=== PATIENT | female | born 1950 | race Caucasian/White ===

== ENCOUNTER → 2016-08-02 | Outpatient (CLI) | payer BC ==
[~2016-08-02] MED LIST: ATOR-24 PO; BUDESUS; CYAN100020 PO; ERGO1CAP35 PO; FRCT/ PO; GLC500 PO; GLIM2TAB2 PO; LEVO175T PO; LISI-787 PO; RALO60TA12 PO; ZOLP10TA PO
[2016-08-02 13:02] LABS: ESTIMATED AVERAGE GLUCOSE 200 mg/dl; HA1C FLAG Normal (Normal)
[2016-08-02 13:17] LABS: ALT/SGPT 24 U/L (12-78); AST/SGOT 13 U/L (15-37); BLOOD UREA NITROGEN 17 mg/dl (7-18); BUN/CREATININE RATIO 19.6 (10-20); CALCIUM 9.6 mg/dl (8.5-10.1); CARBON DIOXIDE 29 mmol/L (21-32); CHLORIDE 107 mmol/L (98-107); CREATININE 0.87 mg/dl (0.60-1.20); GLUCOSE 93 mg/dl (70-99); POTASSIUM 4.4 mmol/L (3.5-5.1); SODIUM 141 mmol/L (136-145)
[2016-08-02 13:28] LABS: ALKALINE PHOSPHATASE 91 U/L (45-117); CHOLESTEROL 135 mg/dl (0-200); CHOLESTEROL/HDL RATIO 2.3; HDL CHOLESTEROL 60 mg/dl; LDL CHOLESTEROL CALCULATED 61 mg/dl; THYROID STIMULATING HORMONE 0.429 uIu/ml (0.300-4.500); TRIGLYCERIDES 69 mg/dl (0-150); VERY LOW DENSITY LIPOPROT CALC 14 mg/dl
== END | disposition home or self-care (01) ==
LOC: C.LABBC 09:44
PROVIDERS: ATTEND Family Medicine
DX: E11.9 Type 2 diabetes mellitus without complications (principal); E78.00 Pure hypercholesterolemia, unspecified; I10 Essential (primary) hypertension; E03.9 Hypothyroidism, unspecified; M81.0 Age-related osteoporosis without current pathological fracture; G47.30 Sleep apnea, unspecified; E55.9 Vitamin D deficiency, unspecified

== ENCOUNTER → 2016-12-19 | Outpatient (CLI) | payer BC ==
[~2016-12-19] VITALS: Ht 152.4 cm; Wt 105.3 kg
[~2016-12-19] MED LIST changes: -RALO60TA12 PO; +RALO60TA30 PO
[2016-12-19 16:58] VITALS: BP 173/87; PULSE 74; Ht 152.4 cm; Wt 105.3 kg
== END | disposition home or self-care (01) ==
LOC: C.NEUR 13:49
PROVIDERS: ATTEND Internal Medicine Pulmonary Disease
DX: G47.33 Obstructive sleep apnea (adult) (pediatric) (principal); I10 Essential (primary) hypertension

== ENCOUNTER → 2016-12-27 | Outpatient (CLI) | payer BC ==
[2016-12-27 11:14] LABS: ALT/SGPT 24 U/L (12-78); BLOOD UREA NITROGEN 14 mg/dl (7-18); BUN/CREATININE RATIO 17.3 (10-20); CALCIUM 9.1 mg/dl (8.5-10.1); CARBON DIOXIDE 27 mmol/L (21-32); CHLORIDE 108 mmol/L (98-107); CREATININE 0.83 mg/dl (0.60-1.20); GLUCOSE 63 mg/dl (70-99); SODIUM 142 mmol/L (136-145)
[2016-12-27 11:16] LABS: CHOLESTEROL 152 mg/dl (0-200); CHOLESTEROL/HDL RATIO 2.8; HDL CHOLESTEROL 54 mg/dl; LDL CHOLESTEROL CALCULATED 80 mg/dl; TRIGLYCERIDES 92 mg/dl (0-150); VERY LOW DENSITY LIPOPROT CALC 18 mg/dl
[2016-12-27 11:18] LABS: ESTIMATED AVERAGE GLUCOSE 134 mg/dl; HA1C FLAG Normal (Normal)
== END | disposition home or self-care (01) ==
LOC: C.LABBC 07:57
PROVIDERS: ATTEND Family Medicine
DX: E11.9 Type 2 diabetes mellitus without complications (principal)

== ENCOUNTER → 2017-06-26 | Outpatient (CLI) | payer OTHER ==
[~2017-06-26] MED LIST changes: +AMLO5TAB4 PO; +BUDE1SUS8 NAE; +CHOL1TAB42 PO; +FURO-85 PO; +LEVO150T PO; +LISI-526 PO; +METF1000 PO; +SITA100T3 PO
[2017-06-26 10:40] LABS: BASO % 0.4 %; BASO ABS # 0.02 K/uL (0-0.2); COMPLETE YES; EOS % 3.4 %; HEMATOCRIT 40.8 % (37-47); IG% 0.2 %; LYMPH % 19.9 %; LYMPH ABS # 1.05 K/uL (1.2-3.4); MEAN CELL VOLUME 89.7 fL (80-100); MEAN CORPUSCULAR HGB CONC 32.4 g/dl (32-36); MEAN PLATELET VOLUME 10.8 fL (7.4-10.4); MONO % 11.4 %; NEUT % 64.7 %; PLATELET COUNT 188 K/uL (130-400); RED BLOOD COUNT 4.55 M/uL (4.2-5.4); WHITE BLOOD COUNT 5.27 K/uL (4.8-10.8)
[2017-06-26 11:02] LABS: ESTIMATED AVERAGE GLUCOSE 194 mg/dl; HA1C FLAG Normal (Normal)
[2017-06-26 11:13] LABS: ALT/SGPT 33 U/L (12-78); AST/SGOT 18 U/L (15-37); BLOOD UREA NITROGEN 11 mg/dl (7-18); BUN/CREATININE RATIO 13.9 (10-20); CARBON DIOXIDE 26 mmol/L (21-32); CHLORIDE 105 mmol/L (98-107); CHOLESTEROL 179 mg/dl (0-200); CREATININE 0.83 mg/dl (0.60-1.20); GLUCOSE 178 mg/dl (70-99); POTASSIUM 4.3 mmol/L (3.5-5.1); SODIUM 136 mmol/L (136-145)
[2017-06-26 11:20] LABS: ALB/GLOB RATIO 0.8 (0.9-2); ALKALINE PHOSPHATASE 91 U/L (45-117); CHOLESTEROL/HDL RATIO 3.4; HDL CHOLESTEROL 52 mg/dl; LDL CHOLESTEROL CALCULATED 101 mg/dl; THYROID STIMULATING HORMONE 0.312 uIu/ml (0.300-4.500); TRIGLYCERIDES 131 mg/dl (0-150); VERY LOW DENSITY LIPOPROT CALC 26 mg/dl
[2017-06-26 13:01] LABS: RATIO 17.5 mcg/mg (0-30.0)
== END | disposition home or self-care (01) ==
LOC: C.LAB1850 09:38
PROVIDERS: ATTEND Nurse Practitioner Family
DX: E11.9 Type 2 diabetes mellitus without complications (principal); E78.00 Pure hypercholesterolemia, unspecified; E03.9 Hypothyroidism, unspecified; E55.9 Vitamin D deficiency, unspecified; I10 Essential (primary) hypertension

== ENCOUNTER → 2017-07-14 | Outpatient (CLI) | payer OTHER ==
[~2017-07-14] MED LIST changes: -BUDESUS; -CYAN100020 PO; -ERGO1CAP35 PO; -GLC500 PO; +INSDGI SC; -LEVO175T PO; -LISI-787 PO
--- NOTE | 2017-07-15 14:57 | MAMMOGRAPHY REPORT ---
BILATERAL DIGITAL SCREENING MAMMOGRAM TOMOSYNTHESIS WITH CAD: 07/14/2017 CLINICAL HISTORY: Routine screening. Patient has no complaints. TECHNIQUE: Breast tomosynthesis in addition to standard 2D mammography was performed. Current study was also evaluated with a Computer Aided Detection (CAD) system. COMPARISON: Comparison is made to exams dated: 07/10/2016 mammogram, 07/09/2015 mammogram, 11/03/2013 mammogram, 07/26/2012 mammogram, 07/24/2011 mammogram, and 07/23/2010 mammogram - [facility]. BREAST COMPOSITION: The tissue of both breasts is almost entirely fatty. FINDINGS: No suspicious mass, architectural distortion or cluster of microcalcifications is seen. IMPRESSION: ACR BI-RADS CATEGORY 1: NEGATIVE There is no mammographic evidence of malignancy. A 1 year screening mammogram is recommended. The pa tient will receive written notification of the results. Approximately 10% of breast cancers are not detected with mammography. A negative mammographic report should not delay biopsy if a clinically suggestive mass is present. Gayle montague/penlaura:07/14/2017 17:38:15 Ring Conductor: Ethel RUSSELL(Elvia)(M), [facility] letter sent: Normal 1/2 BI-RADS Code: ACR BI-RADS Category 1: Negative
== END | disposition home or self-care (01) ==
LOC: C.MAMM 13:32
PROVIDERS: ATTEND Nurse Practitioner Family
DX: Z12.31 Encounter for screening mammogram for malignant neoplasm of breast (principal)

== ENCOUNTER → 2017-07-22 | Day surgery (SDC) | payer BC, OTHER ==
[2017-06-30 09:07] VITALS: BMI 44.0
[~2017-07-22] VITALS: Ht 152.4 cm; Wt 102.3 kg
[~2017-07-22] MED LIST changes: +SODIUM CHLORIDE 0.9% 500ML 500 ML IV ONE
[2017-07-22 08:22] VITALS: Ht 152.4 cm; Wt 102.3 kg
--- NOTE | 2017-07-22 08:27 | Endo History and Physical ---
History & Physical Date of Service: Jul 22, 2017. Chief Complaint: Screening Referring Physician: Wil Beckham History of Present Illness 66 yo CF who presents for screening colonoscopy. Past Medical History Diabetes, Reflux, Sleep Apnea, Hypertension, Thyroid Disease Past Surgical History Hx Cardiac Surgery: No Hx Internal Defibrillator: No Hx Pacemaker: No Hx Abdominal Surgery: Yes (TUBAL LIGATION, CHHAYA BSO, JOEL, APPY) Hx of Implantable Prosthesis: No Hx Post-Op Nausea and Vomiting: Yes (OCCASIONAL PONV) Hx Cancer Surgery: No Hx Thoracic Surgery: No Hx Orthopedic: Yes (RT SHOULDER AND ARM SURGERY WITH CLIPS, RT KNEE SCOPE, RT ACHILLES REPAIR) Hx Urinary Tract Surgery: No Family History Colon CA Social History Smoking Status: Never Smoker Hx Substance Use: No Hx Alcohol Use: No Allergies Coded Allergies: Aspirin (Verified Adverse Reaction, Mild, GI UPSET, 07/22/17) Current Medications Reported Home Medications Medications Dose Route/Sig Max Daily Dose Days Date Category Lantus (Insulin Glargine) 100 Unit/Ml Inj 0 SC BID 07/22/17 Reported Lasix (Furosemide) 20 Mg Tab 20 Mg PO DAILY PRN 06/30/17 Reported Rhinocort Allergy (Budesonide (Nasal)) 32 Mcg/Act Melanie 1 [place] MEHNAZ DAILY PRN 06/30/17 Reported Vitamin D (Cholecalciferol) 5,000 Unit Tab 1 Tab PO QPM 06/30/17 Reported Glucophage (Metformin Hcl) 1,000 Mg Tab 1,000 Mg PO BID 06/30/17 Reported Norvasc (Amlodipine Besylate) 5 Mg Tab 5 Mg PO QAM 06/30/17 Reported Prinivil (Lisinopril) 30 Mg Tab 30 Mg PO BID 06/30/17 Reported Synthroid (Levothyroxine Sodium) 150 Mcg Tab 150 Mcg PO QAM 06/30/17 Reported Ambien (Zolpidem Tartrate) 10 Mg Tab 10 Mg PO HS PRN 09/12/14 Reported Lipitor (Atorvastatin Calcium) 40 Mg Tab 40 Mg PO QPM 09/12/14 Reported Fioricet (Acetaminophen/Butalbital/Caffeine) 1 Ea Tab 1 Tab PO UD PRN 09/12/14 Reported Evista (Raloxifene Hcl) 60 Mg Tab 60 Mg PO QPM 09/12/14 Reported Vital Signs Weight (Kilograms): 102.27 Height (Feet): 5 Height (Inches): 0 Physical Exam General Appearance: WD/WN, no apparent distress Respiratory/Chest: Auscultation: breath sounds normal Cardiovascular: Heart Auscultation: RRR Abdomen: Bowel Sounds: normal Inspection & Palpation: soft, non-distended, no tenderness, guarding & rebound Assessment and Plan Assessment: 66 yo CF who presents for screening colonoscopy. Plan: Proceed with colonoscopy.
[2017-07-22 08:28] VITALS: TEMP 36.4
--- NOTE | 2017-07-22 09:12 | GI REPORT ---
Procedure Date: 07/22/2017 8:17 AM Procedure: Colonoscopy Indications: Screening for colorectal malignant neoplasm Medicines: Monitored Anesthesia Care Complications: No immediate complications. Estimated Blood Loss: Estimated blood loss: none. Procedure: Pre-Anesthesia Assessment: - Prior to the procedure, a History and Physical was performed, and patient medications and allergies were reviewed. The patient's tolerance of previous anesthesia was also reviewed. The risks and benefits of the procedure and the sedation options and risks were discussed with the patient. All questions were answered, and informed consent was obtained. Prior Anticoagulants: The patient has taken no previous anticoagulant or antiplatelet agents. ASA Grade Assessment: III - A patient with severe systemic disease. After reviewing the risks and benefits, the patient was deemed in satisfactory condition to undergo the procedure. After I obtained informed consent, the scope was passed under direct vision. Throughout the procedure, the patient's blood pressure, pulse, and oxygen saturations were monitored continuously. The Scope was introduced through the anus and advanced to the cecum, identified by appendiceal orifice and ileocecal valve. The colonoscopy was performed without difficulty. The patient tolerated the procedure well. The quality of the bowel preparation was good. The ileocecal valve, appendiceal orifice, and rectum were photographed. Findings: The perianal and digital rectal examinations were normal. Two sessile polyps were found in the ascending colon. The polyps were 2 to 3 mm in size. These polyps were removed with a cold biopsy forceps. Resection and retrieval were complete. Two sessile polyps were found in the transverse colon. The polyps were 5 to 7 mm in size. These polyps were removed with a hot snare. Resection and retrieval were complete. To prevent bleeding after the polypectomy, one hemostatic clip was successfully placed (MR conditional). There was no bleeding at the end of the procedure. Scattered small-mouthed diverticula were found in the entire colon. Non-bleeding internal hemorrhoids were found during retroflexion. The hemorrhoids were small. Impression: - Two 2 to 3 mm polyps in the ascending colon, removed with a cold biopsy forceps. Resected and retrieved. - Two 5 to 7 mm polyps in the transverse colon, removed with a hot snare. Resected and retrieved. Clip (MR conditional) was placed. - Diverticulosis in the entire examined colon. - Non-bleeding internal hemorrhoids. Recommendation: - Resume previous diet. - Continue present medications. - Repeat colonoscopy for surveillance based on pathology results. - Return to primary care physician as previously scheduled. Kevin Ibanez, DO 07/22/2017 9:12:20 AM This report has been signed electronically. Note Initiated On: 07/22/2017 8:17 AM I attest to the content of the Intraoperative Record and orders documented therein, exceptions below
--- NOTE | 2017-07-22 09:15 | Discharge Instructions ---
Endoscopy Patient Instructions Date / Procedure(s) Performed Jul 22, 2017. Colonoscopy Allergy Information Coded Allergies: Aspirin (Verified Adverse Reaction, Mild, GI UPSET, 07/22/17) Discharge Date / Findings Jul 22, 2017. Colon polyps Diverticulosis Internal hemorrhoids Medication Instructions Stopped Medication(s): metformin OK to resume all medications today as prescribed Reported Home Medications Medications Dose Route/Sig Max Daily Dose Days Date Category Lantus (Insulin Glargine) 100 Unit/Ml Inj 0 SC BID 07/22/17 Reported Lasix (Furosemide) 20 Mg Tab 20 Mg PO DAILY PRN 06/30/17 Reported Rhinocort Allergy (Budesonide (Nasal)) 32 Mcg/Act Melanie 1 [place] MEHNAZ DAILY PRN 06/30/17 Reported Vitamin D (Cholecalciferol) 5,000 Unit Tab 1 Tab PO QPM 06/30/17 Reported Glucophage (Metformin Hcl) 1,000 Mg Tab 1,000 Mg PO BID 06/30/17 Reported Norvasc (Amlodipine Besylate) 5 Mg Tab 5 Mg PO QAM 06/30/17 Reported Prinivil (Lisinopril) 30 Mg Tab 30 Mg PO BID 06/30/17 Reported Synthroid (Levothyroxine Sodium) 150 Mcg Tab 150 Mcg PO QAM 06/30/17 Reported Ambien (Zolpidem Tartrate) 10 Mg Tab 10 Mg PO HS PRN 09/12/14 Reported Lipitor (Atorvastatin Calcium) 40 Mg Tab 40 Mg PO QPM 09/12/14 Reported Fioricet (Acetaminophen/Butalbital/Caffeine) 1 Ea Tab 1 Tab PO UD PRN 09/12/14 Reported Evista (Raloxifene Hcl) 60 Mg Tab 60 Mg PO QPM 09/12/14 Reported Provider Instructions Activity Restrictions - No exercising or heavy lifting for 24 hours. - Do not drink alcohol the day of the procedure. - Do not drive a car or operate machinery until the day after the procedure. - Do not make any important decisions or sign important papers in 24 hours after the procedure. Following Day: - Return to full activity which may include returning to work/school. Diet Start your diet with liquids and light foods (jello, soup, juice, toast). Then eat your usual diet if not nauseated. Treatment For Common After Affects For mild abdominal pain, bloating, or excessive gas: - Rest - Eat lightly - Lie on right side Follow-Up Information Follow-up with Dr. Bedolla as scheduled Anesthesia Information What You Should Know You have had a procedure that required some medicine to reduce anxiety and discomfort. This treatment is called moderate sedation. After receiving the treatment, you may be sleepy, but you will be able to breathe on your own. The effects of the treatment may last for several hours. Follow these instructions along with Activity/Diet recommendations noted above: * Do NOT do anything where dizziness or clumsiness would be dangerous. * Rest quietly at home today, then you can be up and about tomorrow. * Have a responsible person stay with you the rest of today. * You may have had an I.V. today. If so, you may take the dressing off later today. Recommendations Call your doctor if: * Trouble breathing * Continuous vomiting for more than 24 hours * Temperature above 101 degrees * Severe abdominal pain or bloating * Pain not relieved by pain medicine ordered * There is increased drainage or redness from any incision * A large amount of rectal bleeding greater than 2-3 tablespoons. (If you had a polyp/s removed or have hemorrhoids, a small amount of blood - from the rectum is to be expected.) * You have any unanswered questions or concerns. IN THE EVENT OF A SERIOUS EMERGENCY, GO TO THE NEAREST EMERGENCY ROOM Your discharge instructions were prepared by provider Kevin Ibanez. Patient Instructions Signature Page Citlali Regan Patient (or Guardian) Signature/Date: I have read and understand the instructions given to me by my caregivers. Caregiver/RN/Doctor Signature/Date: The above-named patient and/or guardian has received patient instructions on this date. + Original Patient Signature Page (only) stays with chart. Please make copy for patient.
[2017-07-22 09:43] VITALS: BP 127/68; PULSE 66; O2SAT 96
--- NOTE | 2017-07-22 10:31 | Anesthesiology Progress Note ---
Anesthesia Post Op Note Date & Time Jul 22, 2017 at 10:31 Vital Signs Pain Intensity: 0 Vital Signs Past 12 Hours Date Time Temp Pulse Resp B/P (MAP) Pulse Ox O2 Delivery O2 Flow Rate FiO2 07/22/17 09:43 66 18 127/68 (87) 96 Room Air 07/22/17 09:28 74 16 119/64 (82) 98 Room Air 07/22/17 09:13 72 16 104/62 (76) 98 Room Air 07/22/17 08:28 36.4 78 18 176/78 (110) 98 Room Air Notes Mental Status: alert / awake / arousable, participated in evaluation Pt Amnestic to Procedure: Yes Nausea / Vomiting: adequately controlled Pain: adequately controlled Airway Patency, RR, SpO2: stable & adequate BP & HR: stable & adequate Hydration State: stable & adequate Anesthetic Complications: no major complications apparent
== END | disposition home or self-care (01) ==
LOC: C.GI 07:19
PROVIDERS: ATTEND Internal Medicine
DX: Z12.11 Encounter for screening for malignant neoplasm of colon (principal); D12.2 Benign neoplasm of ascending colon; D12.3 Benign neoplasm of transverse colon; K57.30 Diverticulosis of large intestine without perforation or abscess without bleeding; K64.8 Other hemorrhoids; I10 Essential (primary) hypertension; E11.9 Type 2 diabetes mellitus without complications; K21.9 Gastro-esophageal reflux disease without esophagitis; Z80.0 Family history of malignant neoplasm of digestive organs; Z79.4 Long term (current) use of insulin; Z79.899 Other long term (current) drug therapy; E78.5 Hyperlipidemia, unspecified; G47.33 Obstructive sleep apnea (adult) (pediatric); E03.9 Hypothyroidism, unspecified; F41.9 Anxiety disorder, unspecified

== ENCOUNTER → 2017-11-09 | Outpatient (CLI) | payer OTHER ==
[~2017-11-09] MED LIST changes: -GLIM2TAB2 PO; -SITA100T3 PO; -SODIUM CHLORIDE 0.9% 500ML 500 ML IV ONE
[2017-11-09 11:29] LABS: HEMOGLOBIN A1C 6.9 % (4.5-5.6)
== END | disposition home or self-care (01) ==
LOC: C.LABBC 08:50
PROVIDERS: ATTEND Neuromusculoskeletal Medicine & OMM
DX: E11.9 Type 2 diabetes mellitus without complications (principal)

== ENCOUNTER 2024-05-13 05:08 | Observation (INO) ==
--- NOTE | 2024-04-18 12:50 | PAT Medication Instructions ---
Medication Instructions Date of Service April 18, 2024 Home Medications Medication Instructions Recorded cholecalciferol (vitamin D3) 125 5,000 unit PO PM #90 tabs 05/13/19 mcg (5,000 unit) tablet (Vitamin D3) blood sugar diagnostic (OneTouch #300 strips 06/01/23 Ultra Test strips) insulin glargine 100 unit/mL (3 18 unit (0.18 mL) subcut BID #45 mL 06/09/23 mL) subcutaneous pen (Lantus Solostar U-100 Insulin) pen needle, diabetic 31 gauge x #300 ea 06/16/23/" amlodipine 5 mg tablet 5 mg PO QAM #90 tabs 09/22/23 levothyroxine 100 mcg tablet 100 mcg PO QAM #90 tabs 09/22/23 metformin 1,000 mg tablet 1,000 mg PO BID #180 tabs 09/22/23 raloxifene 60 mg tablet 60 mg PO PM #90 tabs 09/22/23 lisinopril 30 mg tablet 30 mg PO BID #180 tabs 04/14/24 Medication List: cholecalciferol (vitamin D3) 125 mcg (5,000 unit) tablet (Vitamin D3) 5,000 unit PO PM acetaminophen 325 mg capsule (Tylenol) 325 mg PO UD PRN Pain insulin glargine 100 unit/mL (3 mL) subcutaneous pen (Lantus Solostar U-100 Insulin) 18 unit (0.18 mL) subcut BID amlodipine 5 mg tablet 5 mg PO QAM levothyroxine 100 mcg tablet 100 mcg PO QAM metformin 1,000 mg tablet 1,000 mg PO BID raloxifene 60 mg tablet 60 mg PO PM lisinopril 30 mg tablet 30 mg PO BID atorvastatin 40 mg tablet 40 mg PO HS clotrimazole-betamethasone 1 %-0.05 % topical cream 1 applic topical UD PRN rash furosemide 20 mg tablet (Lasix) 20 mg PO UD PRN Fluid Retention naproxen sodium 220 mg capsule (Aleve) 0 mg PO UD PRN Pain MEDICATION INSTRUCTIONS: Continue as directed clotrimazole-betamethasone 1 %-0.05 % topical cream 1 applic topical UD PRN rash (do not apply after bathing prior to surgery) ASK your surgeon for instructions raloxifene 60 mg tablet 60 mg PO PM naproxen sodium 220 mg capsule (Aleve) 0 mg PO UD PRN Pain DO NOT take the morning of surgery furosemide 20 mg tablet (Lasix) 20 mg PO UD PRN Fluid Retention metformin 1,000 mg tablet 1,000 mg PO BID lisinopril 30 mg tablet 30 mg PO BID Take morning of surgery With a small sip of water, OTHERWISE NOTHING TO EAT OR DRINK AFTER MIDNIGHT: acetaminophen 325 mg capsule (Tylenol) 325 mg PO UD PRN Pain amlodipine 5 mg tablet 5 mg PO QAM levothyroxine 100 mcg tablet 100 mcg PO QAM Take evening before surgery atorvastatin 40 mg tablet 40 mg PO HS cholecalciferol (vitamin D3) 125 mcg (5,000 unit) tablet (Vitamin D3) 5,000 unit PO PM acetaminophen 325 mg capsule (Tylenol) 325 mg PO UD PRN Pain metformin 1,000 mg tablet 1,000 mg PO BID lisinopril 30 mg tablet 30 mg PO BID insulin glargine 100 unit/mL (3 mL) subcutaneous pen (Lantus Solostar U-100 Insulin) 18 unit (0.18 mL) subcut BID Insulin Dependent Diabetic Patients * Test your blood sugar the morning of surgery * If Blood Sugar is GREATER THAN 150, take HALF of your regular dose of: insulin glargine 100 unit/mL (3 mL) subcutaneous pen (Lantus Solostar U-100 Insulin) 18 unit (0.18 mL) subcut BID * If Blood Sugar is LESS THAN 150, DO NOT TAKE ANY: insulin glargine 100 unit/mL (3 mL) subcutaneous pen (Lantus Solostar U-100 Insulin) 18 unit (0.18 mL) subcut BID Other Notes If you have any questions please call us at [phone] or [phone] or [phone] or [phone]
--- NOTE | 2024-04-26 13:35 | Anesthesiology Consultation ---
Date of Service April 26, 2024 Assessment & Plan (1) Encounter for pre-operative examination: Plan - check BSG am DOS. - PONV: this was discussed in detail with patient and she believes has done well with IV pre-dosing in the past, denies having scop patch before. She indicated comfort with discussion and that final plan will be her discussion with anesthesiologist DOS. - difficult IV stick: OR notified for IV team. Chart Review Chart Review: Acceptable Risk for Surgery and Patient seen in Pre Admission Testing Teaching & Discussion Pre-Anesthesia Teaching/Discussion Notes: Instructed NPO after midnight before surgery, except medications with 15 cc of water. Medication instructions provided according to the PAT guidelines. History Surgery Operation Date: 05/13/24 07:30 Proposed Procedures p C4-C5, C5-C6 Anterior Cervical Discectomy Fusion, Spinal Cord Monitoring - Hnag Mckeon MD Height/Weight Height: 5 ft Weight: 96.1 kg Allergies Allergy/AdvReac Type Severity Reaction Status Date / Time aspirin AdvReac Unknown hx stomach Verified 04/21/24 15:06 upset Medications Home Medications Medication Instructions Recorded Confirmed Last Taken cholecalciferol (vitamin D3) 125 5,000 unit PO PM #90 tabs 05/13/19 04/21/24 11/10/22 mcg (5,000 unit) tablet (Vitamin D3) acetaminophen 325 mg capsule 325 mg PO UD PRN Pain 04/17/22 04/21/24 09/13/22 (Tylenol) blood sugar diagnostic (OneTouch #300 strips 06/01/23 03/02/24 Unknown Ultra Test strips) insulin glargine 100 unit/mL (3 18 unit (0.18 mL) subcut BID #45 mL 06/09/23 04/21/24 Unknown mL) subcutaneous pen (Lantus Solostar U-100 Insulin) pen needle, diabetic 31 gauge x #300 ea 06/16/23 03/02/24 Unknown /" amlodipine 5 mg tablet 5 mg PO QAM #90 tabs 09/22/23 04/21/24 Unknown levothyroxine 100 mcg tablet 100 mcg PO QAM #90 tabs 09/22/23 04/21/24 Unknown metformin 1,000 mg tablet 1,000 mg PO BID #180 tabs 09/22/23 04/21/24 Unknown raloxifene 60 mg tablet 60 mg PO PM #90 tabs 09/22/23 04/21/24 Unknown lisinopril 30 mg tablet 30 mg PO BID #180 tabs 04/14/24 04/21/24 Unknown atorvastatin 40 mg tablet 40 mg PO HS 04/15/24 04/21/24 Unknown clotrimazole-betamethasone 1 1 applic topical UD PRN rash 04/15/24 04/21/24 Unknown %-0.05 % topical cream furosemide 20 mg tablet (Lasix) 20 mg PO UD PRN Fluid Retention 04/15/24 04/21/24 Unknown naproxen sodium 220 mg capsule 0 mg PO UD PRN Pain 04/15/24 04/21/24 Unknown (Aleve) Past Medical History Medical History (Updated 04/26/24 @ 14:06 by Kaykay Cordero PA-C) Back problem Cervical myelopathy Cervical spinal stenosis Diabetes type 2 Difficult intravenous access Fatty liver pt suspects, never told. Herniated nucleus pulposus, C4-5 Herniated nucleus pulposus, C5-6 History of colon polyps History of fracture of orbit Hx fall 2021. resolved / no hx sx. History of shingles several yrs ago HTN (hypertension) controlled, stable per pt Hypercholesteremia Hypothyroid Nocturnal hypoxemia cpap Osteoporosis Renal cyst stable for yrs. Sleep apnea cpap Unique anesthetic considerations on preoperative anesthesia assessment pt reports multiple times is concerned about her hx ponv. Urinary incontinence Venous insufficiency small spider veins per pt Patient denies h/o stroke, seizures, heart attack, heart failure, blood clots/DVTs or blood transfusions. Exercise / Class Metabolic Activity II 4-5 Yardwork/Stairs/Walk up hill (denies chest discomfort or shortness of breath with one flight of stairs) Past Family History Family History Brother Colorectal cancer Mother Myocardial infarction Father Myocardial infarction Denies family history of Ovarian cancer Prostate cancer Breast cancer Past Surgical History Surgical History H/O repair of rotator cuff L, done 04/18/22 H/O: hysterectomy History of open reduction and internal fixation (ORIF) procedure right arm History of open reduction and internal fixation (ORIF) procedure left arm History of reverse total replacement of left shoulder joint done 04/18/22 Hx of Achilles tendon repair right Hx of cataract extraction bilat Hx of colonoscopy Nausea and vomiting after administration of anesthetic agent denies needing scop patch S/P appendectomy S/P cholecystectomy S/P knee surgery right knee > arthroscopic S/P tubal ligation S/P wisdom tooth extraction Past Anesthesia History No Hx of Anesthesia Complications and No Family Hx of Anesthesia Complications History of PONV No Hx of Motion Sickness and History of PONV (denies needing scop patch) STOP BANG Total 3 Social History Smoking Status: Never smoker Do You Dip or Chew Tobacco: No Hx Alcohol Use: No Hx Substance Use: No substance use type: does not use Review of Systems Patient denies chest pain, shortness of breath, dyspnea on exertion, reflux, fever, chills, cough, wheezing, or palpitations. Physical Exam Vital Signs Vitals BP 126/80 P 77 TEMP 98.2 SP02 97% on RA RESP 18 Physical Patient resting comfortably in chair in no acute distress, alert and oriented, r esponding appropriately throughout visit Full cervical extension range of motion without pain TMD < 3 finger breadths Mallampati Score 3 Dentition: edentulous, full upper and lower dentures Lungs: normal respiratory effort. Good air movement, clear throughout to auscultation, no adventitious breath sounds Cardiac: regular rate and rhythm, no murmurs noted Carotid arteries: negative bruit bilat Lab Results Anesthesia Preop Results Results Anesthesia Widget: WBC 7.14 K/ul (4.8-10.8) 04/26/24 Hgb 11.3 g/dl (12.0-16.0) L 04/26/24 Hct 36.2 % (37.0-47.0) L 04/26/24 Plt 235 K/uL (130-400) 04/26/24 Na 137 mmol/L (136-145) 04/26/24 K 3.9 mmol/L (3.5-5.1) 04/26/24 Cl 104 mmol/L (98-107) 04/26/24 CO2 27 mmol/L (21-32) 04/26/24 BUN 14 mg/dl (6-23) 04/26/24 Creat 0.95 mg/dl (0.6-1.2) 04/26/24 Glucose Level 162 mg/dl (70-99(Fasting)) H 04/26/24 PT 11.0 Seconds (9.0-12.0) 04/26/24 PTT 25 Seconds (21-31) 04/26/24 INR 1.0 (0.9-1.1) 04/26/24 HA1c 6.2 % (4.5-5.6) H 04/26/24 Blood Type A Positive 04/26/24 Antibody Screen NEGATIVE 04/26/24 Testing Electrocardiogram Date: 04/26/24 NSR, rate 75 bpm Low voltage QRS Chest X-Ray Date: 04/26/24 No acute chest disease. Cervical Spine Date: 03/24/24 1. Moderate multilevel degenerative disc disease and facet arthrosis within the cervical spine. Several small T2 hyperintense foci within the cord at the C4-C5 and C5-C6 levels suggest multifocal myelomalacia. 2. Moderate central canal stenosis at C4-C5 due to a central disc protrusion which indents the ventral aspect of the cord. 3. Moderate central canal stenosis at C5-C6 due to broad-based disc osteophyte complex. 4. Multilevel neural foraminal stenosis, as detailed above.
--- OUTSIDE RECORDS SUMMARY | 2024-05-13 05:13 | External Medical Summary | Summary of Care ---
Author Name Unknown Organization [facility] Address [address] [place] [address] Phone [phone] Care Team Providers Care Toe Pounder Name Role Phone Kade Houser Attjaiem DO Primary Care Provider Encounter Details Date Type Department Care Team (Late st Contact Info) Description 04/26/2024 Population Health External Data Unspecified Department Allergies No known active allergiesdocumented as of this encounter (statuses as of 04/27/2024) Medications Medication Sig Dispensed Refills Start Date End Date Status clotrimazole-betam ethasone (LOTRISONE) 1-0.05 % cream 11/30/2017 Active ONETOUCH ULTRA BLUE STRP 11/18/2017 Active LANTUS SOLOSTAR 100 UNIT/ML SOPN 12/03/2017 Active RELION PEN NEEDLES 31G X 6 MM MISC 11/10/2017 Active Cholecalciferol (VITAMIN D-3) 5000 units Tablet Take 1 Tablet by mouth in the morning. Active budesonide (RHINOCORT ALLERGY) 32 MCG/ACT nasal spray Administer 1 [place] into nostril daily. Active zoster vac recomb adjuvanted (SHINGRIX) 50 MCG/0.5ML injection Inject 0.5 mL into a large muscle once. Inject 0.5 mL into a large muscle now and repeat dose in 60 to 180 days Active Diclofenac Potassium 50 MG Tablet Take 1 Tab by mouth 3 times a day. 90 Tab 2 10/18/2018 Active Additional Information Patient not taking.Reported on 02/04/2024 tiZANidine (ZANAFLEX) 4 MG Tablet Take 1 Tab by mouth every 6 hours as needed for Muscle spasms. 30 Tab 10/18/2018 Active Additional Information Patient not taking.Reported on 02/04/2024 diclofenac sodium (VOLTAREN) 50 MG TBEC Take 1 Tab by mouth 2 times a day. 60 Tab 1 10/27/2018 Active Additional Information Patient not taking.Reported on 02/04/2024 Lisinopril 30 MG Oral Tablet take 1 tablet by mouth twice a day 180 Tablet 1 06/01/2023 Active OneTouch Ultra In Vitro Strip (Glucose Blood) USE DIRECTED THREE TIMES A DAY 300 Strip 1 06/01/2023 Active Insulin Glargine Solostar 100 UNIT/ML Subcutaneous Solution Pen-injector Inject 18 units subcutaneously twice a day 45 mL 3 06/09/2023 Active Exel Comfort Point Pen Needle 31G X 6 MM (Insulin Pen Needle) As directed 300 Each 2 06/16/2023 Active amLODIPine Besylate 5 MG Oral Tablet (Norvasc) Take one tablet by mouth daily in the morning 90 Tablet 3 09/22/2023 Active Levothyroxine Sodium 100 MCG Oral Tablet (Levoxyl) Take one tablet by mouth daily in the morning 90 Tablet 3 09/22/2023 Active metFORMIN HCl 1000 MG Oral Tablet (Glucophage) Take one tablet by mouth twice a day 180 Tablet 3 09/22/2023 Active Raloxifene HCl 60 MG Oral Tablet (Evista) Take one tablet by mouth in the evening 90 Tablet 3 09/22/2023 Active Vitamin B 12 500 MCG Oral Tablet Take 1 Tablet by mouth daily. Active Carboxymethylcellu lose Sodium 0.5 % Ophthalmic Solution (Refresh Tears) Instill 1 Drop into both eyes 4 times a day as needed for Dry eyes. Active Debrox 6.5 % Otic Solution (Carbamide Peroxide) Instill 5 Drops into both ears as needed. Active Furosemide 20 MG Oral Tablet (Lasix) Take one tablet by mouth daily As Needed for Fluid Retention 90 Tablet 1 03/07/2024 Active Atorvastatin Calcium 40 MG Oral Tablet (Lipitor) TAKE ONE TABLET BY MOUTH AT BEDTIME 90 Tablet 03/28/2024 Active Lisinopril 30 MG Oral Tablet Take 1 Tablet by mouth 2 times a day. 180 Tablet 1 04/14/2024 Active documented as of this encounter (statuses as of 04/27/2024) Active Problems No known active problems documented as of this encounter (statuses as of 04/27/2024) Resolved Problems Problem Noted Date Diagnosed Date Resolved Date Encounter for examination fo r normal comparison and control in clinical research program 10/12/2018 02/13/2020 Overview: DO NOT DELETE [facility] DETECT Study: Project # [id number], Surveillance Investigator: Maldonado Velazco, PhD. SUMMARY: Goal: Establish test characteristics (sensitivity, specificity, PPV, NPV) of a circulating tumor DNA (ctDNA)-based test for cancer. Hypothesis: Circulating tumor DNA (ctDNA) and elevated protein biomarkers (together, the marker panel) can be detected in asymptomatic individuals with early cancer. Specific Aim 1: Determine the prevalence of a positive marker panel test in a prospective clinical cohort of 10,000 asymptomatic women ages 65 to 75 years. Specific Aim 2: Determine the sensitivity, specificity, positive predictive value (PPV) and negative predictive value (NPV) of a marker panel test to identify histologically proven cancers that develop within 5-years of the marker panel evaluation. CONTACTS: During normal business hours, contact study staff at ; after hours Surveillance Investigator via the [facility] [place] angledozer operator . Please contact study team before resolving/deleting from patients problem list. Study phone number: [phone]. Diagnosis changed due to Research Module. Go to Snapshot for study details. Encounter for examination fo r normal comparison and control in clinical research program 10/12/2018 03/13/2022 Overview: DO NOT DELETE - [facility] DETECT Study: Project # [id number], Surveillance Investigator: Adam Wakefield, MS, MPH. SUMMARY: Goal: Establish test characteristics (sensitivity, specificity, PPV, NPV) of a circulating tumor DNA (ctDNA)-based test for cancer. - Hypothesis: Circulating tumor DNA (ctDNA) and elevated protein biomarkers (together, the marker panel) can be detected in asymptomatic individuals with early cancer. - Specific Aim 1: Determine the prevalence of a positive marker panel test in a prospective clinical cohort of 10,000 asymptomatic women ages 65 to 75 years. - Specific Aim 2: Determine the sensitivity, specificity, positive predictive value (PPV) and negative predictive value (NPV) of a marker panel test to identify histologically proven cancers that develop within 5-years of the marker panel evaluation. - CONTACTS: During normal business hours, contact study staff at ; after hours Surveillance Investigator via the [facility] [place] hospital angledozer operator . - Please contact study team before resolving/deleting from patients problem list. Study phone number: [phone]. Diagnosis changed due to Research Module. Go to Snapshot for study details. documented as of this encounter (statuses as of 04/27/2024) Social History Tobacco Use Types Packs/Day Years Used Date Smoking Tobacco: Never Smokeless Tobacco: Never Alcohol Use Standard Drinks/Week Comments No 0 (1 standard drink = 0.6 oz pur e alcohol) AUDIT-C Answer Date Recorded Frequency of Alcohol Consumption Never 10/18/2018 Average Number of Drinks Not on file 019 Frequency of Binge Drinking Not on file 02/2019 Utilities Answer Date Recorded Do you have trouble paying y our heating, water, or electric bill? (Adult - for ages 18 years and over) Not on file 12/29/2023 Is your family able to pay t he heat, water, or electric bill? (Household - for ages 0-17 years) Not on file 12/29/2023 Does your family have access to good internet? (Household - for ages 0-17 years) Not on file 12/29/2023 Social Connections Answer Date Recorded How often do you feel lonely or isolated from those around you? (Adult - for ages 18 years and over) Not on file 12/29/2023 Sex and Gender Information Value Date Recorded Sex Assigned at Not on file Gender Identity Not on file Sexual Orientation Not on file documented as of this encounter Plan of Treatment Health Maintenance Due Date Last Done Comments Depression Screening 1962 Hepatitis C Screening 1968 DTap/Tdap Vaccines (1 - Tdap) 1969 Cologuard 10/15/1995 Colonoscopy 10/15/1995 Colorectal Cancer Screening 10/15/1995 Fecal Occult Blood Test 10/15/1995 Sigmoidoscopy 10/15/1995 Zoster Vaccines (1 of 2) 2000 Lipid Panel 01/09/2004 01/08/1999, 10/28/1996 Pneumococcal Vaccine: 65+ Years (1 of 1 - PCV) 10/15/2015 TSH 04/17/2023 04/17/2022, 12/12, 05/31/1998, Additional history exists COVID-19 Vaccine ( season) 2024 04/28/2022 Influenza Vaccine (FLU shot) (#1) 2024 04/28/2022, 04/24/2021 Mammogram 03/24/2024 03/24/2023, 090 01/2022, 03/15/2021 DXA Scan 11/22/2028 11/22/2021 HPV (Gardasil) Vaccine Aged Out No lo nger eligible based on patient's age to complete this topic Hepatitis B Vaccine Aged Out No longe r eligible based on patient's age to complete this topic MENINGOCOCCAL (MENACTRA/MENVEO) Aged Out No longer eligible based on patient's age to complete this topic documented as of this encounter Medical Devices Not on filedocumented as of this encounter Care Teams Toe Pounder Relationship Specialty Start Date End Date Kade Houser DO [address] [place] [address] PCP - General Family Medicine 09/21/18 documented as of this encounter
--- OUTSIDE RECORDS SUMMARY | 2024-05-13 05:13 | External Medical Summary ---
Author Name Unknown Address Unknown Organization [id number]:[facility] [place] - [address] [facility] [id number] Laboratory Report Ordering Provider Test Date Status [place] LOVE 05/09/2024 14:10:00 Final Dried Blood Spot specimens h ave been validated for general health screening purposes only. This test should not be used for diagnosis or medical treatment without confirmation by other medically established means. The use of HbA1c to monitor glycemic status is based on normal hemoglobin and HbA composition, and should not be used in patients with abnormal hemoglobin that affects the half life of the red blood cell or the in vivo glycation rates.

This test was developed and its performance characteristics determined by [facility]. It has not been cleared or approved by the [place] Food and Drug Administration.

This test was performed as part of a [employer] [facility] [employer] fulfillment initiative.
null Observation Date Value Abnormality Reference (Units ) Status Hemoglobin A1c/Hemoglobin.total in DBS 05/09/2024 14:10:00 6.4 Above high normal 4.0-5.6 (%) Final Glucose, estimated average 05/09/2024 14:10:00 137 Above high normal <126 (mg/dL) Final Performing Location [facility] - [address] [facility] [id number]
[2024-05-13] MEDS: LR 15ML/HR IV SCH (06:06)
[2024-05-13] MEDS: LR 60ML/HR IV SCH (06:07)
[2024-05-13] MEDS ORDERED: LIDOCAINE 2% 2 ML VIAL/AMP(20MG/ML) INFIL ONE (06:37)
[2024-05-13] MEDS ORDERED: ROCURONIUM BROMIDE 10 MG/ML 5 ML VIAL IV ONE (06:37)
[2024-05-13] MEDS ORDERED: ONDANSETRON INJ 2 MG/ML 2 ML VIAL ONE (06:37)
[2024-05-13] MEDS ORDERED: DEXAMETHASONE SOD INJ 4 MG/ML VIAL ONE (06:37)
[2024-05-13] MEDS ORDERED: fentaNYL citrate PF 100 MCG/2 ML VIAL ONE ×2 (06:37→11:57)
[2024-05-13] MEDS ORDERED: PROPOFOL IV EMULSION 10 MG/ML 20 ML VIAL IV ONE ×3 (06:37→10:54)
[2024-05-13] MEDS ORDERED: ePHEDrine sulfate 50 MG/ML AMP IV PRN (06:51)
[2024-05-13] MEDS ORDERED: fentaNYL citrate PF 100 MCG/2 ML VIAL IV PRN (06:51)
[2024-05-13] MEDS ORDERED: HYDROmorphone INJ 1 MG/ML SYRINGE IV PRN (06:51)
[2024-05-13] MEDS ORDERED: FLUMAZENIL 0.1 MG/1 ML 10 ML VIAL IV PRN (06:51)
[2024-05-13] MEDS ORDERED: NALOXONE HCL 0.4 MG/1 ML VIAL/CARP IV PRN ×2 (06:51→13:51)
[2024-05-13] MEDS ORDERED: ATROPINE SULFATE 0.1 MG/ML 10ML SYR IV PRN (06:51)
[2024-05-13] MEDS ORDERED: LABETALOL HCL IV 5 MG/ML 20ML IV PRN (06:51)
[2024-05-13] MEDS ORDERED: ONDANSETRON INJ 2 MG/ML 2 ML VIAL IV PRN ×2 (06:51→13:51)
[2024-05-13] MEDS ORDERED: PROMETHAZINE HCL 6.25 MG in SODIUM CHLORIDE 0.9% 50 ML IV PRN (06:51)
[2024-05-13] MEDS: SCOPOLAMINE 1 MG/72 HR TDSY PATCH TD ONE (06:58)
[2024-05-13] MEDS: SCOPOLAMINE 1 MG/72 HR TDSY PATCH TD SCH (06:58)
--- NOTE | 2024-05-13 07:03 | History & Physical Bridge Note ---
Date of Service May 13, 2024 History & Physical Bridge Note I have examined the patient, reviewed the History & Physical and in the interval since the performance of the History & Physical I have noted the following changes of clinical significance: no changes noted plan for ACDF C4-5, 5-6
[2024-05-13] MEDS ORDERED: DexMEDEtomidine HCL IV 100 MCG/ML VIAL IV ONE ×2 (07:11)
[2024-05-13] MEDS ORDERED: REMIFENTANIL HCL 1 MG VIAL IV ONE ×2 (07:11→09:02)
[2024-05-13] MEDS ORDERED: KETAMINE HCL 10MG/ML SYR ONE (07:28)
[2024-05-13] MEDS ORDERED: MIDAZOLAM HCL 1 MG/ML 2ML VIAL ONE (07:46)
[2024-05-13] MEDS: ceFAZolin 2000MG 2,000 MG/15 ML SYR IV SCH ×2 (07:48→16:13)
[2024-05-13] MEDS ORDERED: ePHEDrine sulfate 50 MG/5 ML SYR ONE (08:37)
[2024-05-13] MEDS ORDERED: PROPOFOL IV EMULSION 10 MG/ML 100 ML VIAL IV ONE ×3 (09:29→10:54)
[2024-05-13] MEDS: VANCOMYCIN HCL 1000MG/20ML VIAL ONE (11:24)
[2024-05-13] MEDS: FLOSEAL HEMOSTATIC MATRIX 10ML TOP ONE (12:01)
--- NOTE | 2024-05-13 12:33 | Post Operative Brief Note ---
PG Immediate Post Op with CF Date of Surgery May 13, 2024 Pre & Post Diagnosis Operation Date: 05/13/24 07:15 Pre-Op Diagnosis: (1) Cervical myelopathy (2) Cervical stenosis of spinal canal (3) Herniated nucleus pulposus, C4-5 (4) Herniated nucleus pulposus, C5-6 Post-Op Diagnosis: (1) Cervical myelopathy (2) Cervical stenosis of spinal canal (3) Herniated nucleus pulposus, C4-5 (4) Herniated nucleus pulposus, C5-6 I identified the patient and participated in the time-out.: Yes Procedure Operation Date: 05/13/24 07:15 Actual Procedures p C4-C5, C5-C6 Anterior Cervical Discectomy Fusion, Spinal Cord Monitoring(Not Applicable) - Hang Mckeon MD Surgeon Hang Mckeon MD Release Of Information Specialist Estimated Blood Loss 25 Findings Consistent with Post-Op Diagnosis Specimens Specimen Description: No specimen per surgeon Drains Zapata Catheter (Inserted prior to procedure without difficulty by this RN, clear yellow urine noted. To be removed at end of procedure.) and Thien-Spring Drain Anesthesia Type General Disposition Disposition: Recovery Room
--- NOTE | 2024-05-13 12:48 | Operative Report ---
PG Post Operative Report Pre & Post Diagnosis Operation Date: 05/13/24 07:15 Pre-Op Diagnosis: (1) Cervical myelopathy (2) Cervical stenosis of spinal canal (3) Herniated nucleus pulposus, C4-5 (4) Herniated nucleus pulposus, C5-6 Post-Op Diagnosis: (1) Cervical myelopathy (2) Cervical stenosis of spinal canal (3) Herniated nucleus pulposus, C4-5 (4) Herniated nucleus pulposus, C5-6 I identified the patient and participated in the time-out.: Yes Procedure Anterior cervical discectomy and fusion C4-5 () Insertion of interbody device for fusion C4-5 () Anterior cervical discectomy and fusion C5-6 (49882) Insertion of interbody device for fusion C5-6 () Anterior cervical plating independent of interbody device C4, C5, C6 (26772) Use of allograft for spinal fusion () Surgeon Hang Mckeon MD Forest Officer Estimated Blood Loss 25 Findings See Below Large central disc herniation C4-5 removed, C5-6 disc herniation removed. Osteoporotic bone vertebral bodies. Specimens None Drains ANUJ 10 [place] Anesthesia Type General Complications none Disposition Disposition: Recovery Room Indications Patient is a pleasant 73-year-old female who I met in the office. She was found to have symptoms of cervical myelopathy with decreased balance, urinary urgency, bilateral hand numbness and decreased fine motor skills. MRI demonstrated C4-5 and C5-6 disc herniations creating severe central canal stenosis and obvious cord signal changes we discussed the risks and benefits of surgery which were documented clearly in her preoperative visit, she elected to proceed with surgical intervention Description of Procedure Patient was brought to the operating room where general anesthesia was induced. She was transferred to the operating table in supine bed position. Zapata catheter placed, SCDs for DVT prophylaxis. Shoulder bump placed below her shoulders, neck was mildly extended and do not placed behind her head. Arms were padded with foam wrapped in sheet at the patient's side. All bony prominences were padded. She was secured to the operating table, prepped and draped in the usual sterile fashion after using C arm fluoroscopy to approximate an anterior neck incision. Verbal timeout was performed identifying the patient by name, date of and verifying the correct procedure. All were in agreement and we elected to proceed. Horizontal skin incision was made over the anterior neck hidden within the skin crease at approximately the C4-5 and C5-6 level. Dissection was carried out down to the platysma which was split horizontally. I identified the interval between the sternocleidomastoid and strap musculature of the anterior neck, blunt dissection was carried out through this plane to reach the anterior cervical spine. I was able to palpate the carotid artery lateral to my dissection plane. Spinal needle was placed into the C4-5 disc, level verified by C arm fluoroscopy. I then exposed the anterior C4-5 and C5-6 disc spaces. Anterior osteophytes were removed with rongeur. The longus coli was elevated off the anterior spine with care taken to protect the sympathetic ganglia. Trimline retractor was placed with the blades underneath the longus coli muscle to expose the C5-6 disc space. Farshad pins were placed into the body of C5 and C6. Distraction was applied across the disc space. The annulus was incised, complete discectomy was performed at the C5-6 level, cartilage was stripped from the vertebral body endplates. The posterior longitudinal ligament was identified and taken down utilizing micro nerve hook and Kerrison. Bilateral foraminotomies were performed at the C5-6 level. There was now excellent decompression of the central thecal sac, and bilateral neuroforamen. The endplates were prepared with high-speed bur to obtain bleeding bone. An appropriate sized Medtronic peek interbody spacer was selected and packed with demineralized bone matrix to encourage fusion. The interbody spacer and allograft bone were placed into the C5-6 disc space for fusion at that level. Poneto pin was removed from the C6 level. The Trimline retractor was repositioned over the C4-5 disc space. Poneto pin placed in the C4 vertebral body and distraction was applied across the C4-5 disc space. Once again the annulus was incised, complete discectomy performed at the C4-5 level. The posterior longitudinal ligament was identified and taken down completely with micro nerve hook and Kerrison. There was a large central disc herniation through the posterior longitudinal ligament at this level compressing the spinal cord. Disc fragments were removed as well as the posterior osteophytes of the C4 and C5 vertebral bodies. The endplates were prepared to obtain bleeding bone. Again a Medtronic peek interbody spacer was selected, packed with demineralized bone matrix. The interbody spacer and allograft bone material were placed in the disc space to encourage fusion at this level. Next Medtronic Elfers cervical plate was selected, please note the plate is separate from the interbody devices providing independent stability. The appropriate size plate was selected and verified using C arm fluoroscopy. Screws were placed through the plate into the vertebral bodies of C4, C5 and C6. This completed anterior instrumentation of the spine. The wound was thoroughly irrigated with sterile saline solution. Subfascial ANUJ drain was placed exiting out through the skin and sewn in place. Vancomycin powder was used in the skin edges. The skin was closed utilizing 2-0 Vicryl and 4-0 Monocryl suture with Steri-Strips. Sterile dressing applied, drain attached to suction. The patient was transferred to the hospital bed and taken to PACU in stable condition. Hodgeman J cervical collar was applied. I attest to the content of the Intraoperative Record and any orders documented therein. Any exceptions are noted below.
--- NOTE | 2024-05-13 12:52 | Fluoroscopy Report ---
FL cervical 2-3V CLINICAL HISTORY: ACDF C4-C6 COMPARISON STUDY: Cervical spine radiographs 03/02/2024, MRI 03/24/2024 FLUOROSCOPY TIME: 62.6 seconds FLUOROSCOPY IMAGES: 3 EXPOSURE DOSE: 24.94 mGy FINDINGS: Anterior plate and screw fusion with discectomy noted at what is labeled the C4-C6 levels. Hardware appears intact as visualized. Overlying surgical sponge with endotracheal tube. Note that th e images were submitted following completion of the surgery. IMPRESSION: Fluoroscopic assistance as above. ACT 112: Negative or not required by law. Electronically signed by: Adalberto Smiley M.D. 05/13/2024 12:51 PM
--- NOTE | 2024-05-13 13:27 | Anesthesiology Progress Note ---
Date of Service May 13, 2024 Anesthesia Post Procedure Vital Signs Vital Signs: Temp Pulse Pulse Resp BP Pulse Ox O2 Del Method 05/13/24 13:25 96 H 16 154/78 H 99 Nasal Cannula 05/13/24 13:15 96 H 15 155/77 H 98 Nasal Cannula 05/13/24 13:05 102 H 18 156/81 H 97 Nasal Cannula 05/13/24 12:55 100 H 19 159/78 H 99 Nasal Cannula 05/13/24 12:45 106 H 24 154/78 H 96 Nasal Cannula 05/13/24 12:35 106 H 15 172/73 H 99 Oxymask 05/13/24 12:26 36.2 C L 106 H 17 157/80 H 97 Oxymask 05/13/24 05:50 37.1 C 83 20 173/83 H 96 Room Air O2 Flow Rate 05/13/24 13:25 2 05/13/24 13:15 2 05/13/24 13:05 2 05/13/24 12:55 2 05/13/24 12:45 3 05/13/24 12:35 4 05/13/24 12:26 4 05/13/24 05:50 Pain Intensity Anterior Neck: Pain Intensity: 2 Transfer of Care Handoff Completed per policy Notes Mental Status: alert / awake / arousable Patient Amnestic to Procedure: Yes Nausea / Vomiting: adequately controlled Pain: adequately controlled Airway Patency, RR, SpO2: stable & adequate BP & HR: stable & adequate Hydration State: stable & adequate Anesthetic Complications: no major complications apparent
[2024-05-13] MEDS ORDERED: LORazepam 0.5 MG TAB PO PRN (13:51)
[2024-05-13] MEDS ORDERED: FUROSEMIDE 20 MG TAB PO PRN (13:51)
[2024-05-13] MEDS ORDERED: DO NOT ADMINISTER PNEUMOCOCCAL VACCINE PRN (13:51)
[2024-05-13] MEDS ORDERED: RACEPINEPHRINE 2.25% NEBU SOLN 0.5 ML VIAL INH PRN (13:51)
[2024-05-13] MEDS ORDERED: NON-FORMULARY MEDICATION (Acetaminophen [Tylenol] 325 mg Capsule) PO PRN (13:51)
[2024-05-13] MEDS ORDERED: SOD PHOSPHATE/SOD BIPHOSPHATE ENEMA 132 ML BTL PR PRN (13:51)
[2024-05-13] MEDS ORDERED: ALUMINUM/MAGNESIUM SUSP 30 ML UDC PO PRN (13:51)
[2024-05-13] MEDS ORDERED: PHARMACY GLYCEMIC MGMT CONSULT PRN (13:51)
[2024-05-13] MEDS ORDERED: dexAMETHasone 8 MG in SYRINGE 0 ML IV PRN (13:51)
[2024-05-13] MEDS ORDERED: HYDROmorphone INJ 0.5 MG/0.5 ML SYR IV PRN (13:51)
[2024-05-13] MEDS ORDERED: ONDANSETRON 4 MG OD TAB PO PRN (13:51)
[2024-05-13] MEDS ORDERED: MAGNESIUM HYDROXIDE SUSP 30 ML UDC PO PRN (13:51)
[2024-05-13] MEDS ORDERED: PROMETHAZINE 12.5 MG/50.5 ML BAG IV PRN (13:51)
[2024-05-13] MEDS ORDERED: hydrOXYzine HCl 25 MG TAB PO PRN (13:51)
[2024-05-13] MEDS ORDERED: DO NOT ADMINISTER FLU VACCINE PRN (13:51)
[2024-05-13] MEDS ORDERED: METOCLOPRAMIDE HCL INJ 5 MG/ML 2 ML VIAL IV PRN (13:51)
[2024-05-13] MEDS ORDERED: bisacodyL 10 MG SUPP PR PRN (13:51)
[2024-05-13] MEDS ORDERED: LORazepam 2 MG/1 ML VIAL IV PRN (13:51)
[2024-05-13] MEDS ORDERED: CLOTRIMAZOLE/BETAMETHASONE CR 15 GM TUBE EXT PRN (13:51)
[2024-05-13] MEDS ORDERED: diphenhydrAMINE Capsule 25 MG CAP PO PRN (13:51)
[2024-05-13] MEDS ORDERED: FAMOTIDINE 20 MG TAB PO PRN (13:51)
[2024-05-13] MEDS: CHECK SCOPOLAMINE PATCH PLACEMENT SCH (14:04)
[2024-05-13] MEDS ORDERED: GLUCOSE 40% GEL 15 GM TUBE PO PRN (14:30)
[2024-05-13] MEDS ORDERED: DEXTROSE 50% 50 ML SYRINGE IV PRN (14:30)
[2024-05-13] MEDS ORDERED: GLUCOSE 10 TAB/TUBE PO PRN (14:30)
[2024-05-13] MEDS ORDERED: GLUCAGON FOR INJ 1 MG VIAL SQ PRN (14:30)
[2024-05-13] MEDS ORDERED: CARBOHYDRATES FOR HYPOGLYCEMIA PO PRN (14:30)
--- NOTE | 2024-05-13 14:30 | Hospitalist Consultation ---
Date of Consultation May 13, 2024 Assessment & Plan (1) Status post spinal surgery: VTE / Pain / Bowel management per primary ortho spine team (2) Diabetes mellitus: HbA1C 6.2 04/26/24, no need to repeat Pharmacy consulted for glycemic control during inpatient admission Do not anticipate change in diabetic regimen on discharge given good control (3) Hypothyroidism: TSH 1.878 [03/2023], several years of stability, no need to repeat at current time Continue levothyroxine 100 mcg PO daily (4) Hypercholesterolemia: Continue atorvastatin (5) Obstructive sleep apnea: CPAP HS (6) HTN (hypertension): Given current BP will continue her usual regimen starting tonight with lisinopril 30mg PO BID, amlodipine 5mg PO daily Plan Thank you for the consult, we will continue to follow along with you History of Present Illness Reason for Consultation: s/p acdf, diabetic, htn Attending Physician: Hang Mckeon MD History of Present Illness Citlali Regan is a 73 year old female POD#0 anterior cervical discectomy and fusion performed by Dr Mckeon earlier today. EBL 25ml. No complications noted. No acute concerns or questions from the patient. Patient already out of bed without any dizziness. Allergies Allergy/AdvReac Type Severity Reaction Status Date / Time No Known Allergies Allergy Unverified 05/13/24 06:50 Home Medications Medication Instructions Recorded Confirmed Type cholecalciferol (vitamin D3) 125 5,000 unit PO PM #90 tabs 05/13/19 05/13/24 Rx mcg (5,000 unit) tablet (Vitamin D3) acetaminophen 325 mg capsule 325 mg PO UD PRN Pain 04/17/22 05/13/24 History (Tylenol) blood sugar diagnostic (OneTouch #300 strips 06/01/23 03/02/24 Rx Ultra Test strips) insulin glargine 100 unit/mL (3 18 unit (0.18 mL) subcut BID #45 mL 06/09/23 05/13/24 Rx mL) subcutaneous pen (Lantus Solostar U-100 Insulin) pen needle, diabetic 31 gauge x #300 ea 06/16/23 03/02/24 Rx 1/4" amlodipine 5 mg tablet 5 mg PO QAM #90 tabs 09/22/23 05/13/24 Rx levothyroxine 100 mcg tablet 100 mcg PO QAM #90 tabs 09/22/23 05/13/24 Rx metformin 1,000 mg tablet 1,000 mg PO BID #180 tabs 09/22/23 05/13/24 Rx raloxifene 60 mg tablet 60 mg PO PM #90 tabs 09/22/23 05/13/24 Rx lisinopril 30 mg tablet 30 mg PO BID #180 tabs 04/14/24 05/13/24 Rx atorvastatin 40 mg tablet 40 mg PO HS 04/15/24 05/13/24 History clotrimazole-betamethasone 1 1 applic topical UD PRN rash 04/15/24 05/13/24 History %-0.05 % topical cream furosemide 20 mg tablet (Lasix) 20 mg PO UD PRN Fluid Retention 04/15/24 05/13/24 History naproxen sodium 220 mg capsule 0 mg PO UD PRN Pain 04/15/24 05/13/24 History (Aleve) Patient History Medical History (Updated 05/13/24 @ 14:35 by Marquis Cross MD) History of humerus fracture (04/08/22) left humerus, from fall History of colon polyps Unique anesthetic considerations on preoperative anesthesia assessment pt reports multiple times is concerned about her hx ponv. Difficult intravenous access History of fracture of orbit Hx fall 2021. resolved / no hx sx. Hypothyroid Renal cyst stable for yrs. Fatty liver pt suspects, never told. History of colon polyps Sleep apnea cpap Cervical myelopathy Cervical spinal stenosis Herniated nucleus pulposus, C5-6 Herniated nucleus pulposus, C4-5 Back problem Urinary incontinence Osteoporosis Diabetes type 2 Hypercholesteremia HTN (hypertension) controlled, stable per pt History of shingles several yrs ago Nocturnal hypoxemia cpap Venous insufficiency small spider veins per pt Surgical History (Updated 05/13/24 @ 14:35 by Marquis Cross MD) Status post reverse total replacement of left shoulder (~04/2022) History of open reduction and internal fixation (ORIF) procedure left arm History of open reduction and internal fixation (ORIF) procedure right arm H/O repair of rotator cuff L, done 04/18/22 History of reverse total replacement of left shoulder joint done 04/18/22 Hx of colonoscopy Nausea and vomiting after administration of anesthetic agent denies needing scop patch Hx of cataract extraction bilat Hx of Achilles tendon repair right S/P knee surgery right knee > arthroscopic S/P tubal ligation S/P wisdom tooth extraction H/O: hysterectomy S/P appendectomy S/P cholecystectomy Family History Brother Colorectal cancer Mother Myocardial infarction Father Myocardial infarction Denies family history of Ovarian cancer Prostate cancer Breast cancer Social History Smoking Status: Never smoker Second Hand Exposure: No; Do You Dip or Chew Tobacco: No; Hx Alcohol Use: No Hx Substance Use: No Preferred Language: Montenegrin Communication Ability: Effective Visual Impairment: No Limitations Hearing Ability: Normal Welt Sole Layer Required: No Beliefs That Will Affect Care: None marital status: Current Living Situation: Spouse current occupational status: retired current occupation: used to work at [employer] in [employer] Feels Safe at Home: Yes Childhood Exposure to Second-Hand Smoke: Yes Diet: regular Dental Care, Regularly: Yes Physical Activity Frequency: 1-2 Times per Week Seatbelt Use: always Sunscreen Use: Yes Assistive Devices: Cane, CPAP, Denture - Upper, Denture - Lower and Glasses Assistive Devices Comment: cane prn Review of Systems Review of Systems: All systems reviewed & are unremarkable except as noted in HPI & below Physical Exam Constitutional: WD/WN, vitals as above ENMT: Mouth: oral mucous membranes not dry Currently in cervical collar with post operative drain Respiratory: normal respiratory effort, lungs clear to auscultation Cardiovascular: RRR, no murmur, no edema Gastrointestinal (Abdomen): normal bowel sounds, soft, nontender, no hepatosplenomegaly Psychiatric: A+Ox3, euthymic affect Results & Data Results & Data Vital Signs (Past 12 Hours) Vital Signs Temp Pulse Pulse Resp BP Pulse Ox Pulse Ox 05/13/24 14:22 94 H 16 144/76 H 100 05/13/24 14:19 98 05/13/24 13:58 36.5 C 93 H 16 144/81 H 99 05/13/24 13:35 36.5 C 96 H 19 154/69 H 97 05/13/24 13:25 96 H 16 154/78 H 99 05/13/24 13:15 96 H 15 155/77 H 98 05/13/24 13:05 102 H 18 156/81 H 97 05/13/24 12:55 100 H 19 159/78 H 99 05/13/24 12:45 106 H 24 154/78 H 96 05/13/24 12:35 106 H 15 172/73 H 99 05/13/24 12:26 36.2 C L 106 H 17 157/80 H 97 05/13/24 05:50 37.1 C 83 20 173/83 H 96 O2 Del Method O2 Del Method O2 Flow Rate O2 Flow Rate 05/13/24 14:22 Nasal Cannula 2 05/13/24 14:19 Nasal Cannula 2 05/13/24 13:58 Nasal Cannula 2 05/13/24 13:35 Nasal Cannula 2 05/13/24 13:25 Nasal Cannula 2 05/13/24 13:15 Nasal Cannula 2 05/13/24 13:05 Nasal Cannula 2 05/13/24 12:55 Nasal Cannula 2 05/13/24 12:45 Nasal Cannula 3 05/13/24 12:35 Oxymask 4 05/13/24 12:26 Oxymask 4 05/13/24 05:50 Room Air PG Care Time/CCT Total # of Minutes Spent Total Time Spent with Patient: Total time spent is greater than 50% in coordination of care (as documented) at patient's floor/unit and/or counseling patient: Coding Level of Care Code 06981 IN/OBS CONSULT LVL 3,45M Diagnoses Status post spinal surgery Z98.890 Diabetes mellitus E11.9 Hypothyroidism E03.9 Hypercholesterolemia E78.00 Obstructive sleep apnea G47.33 HTN (hypertension) I10
[2024-05-13] MEDS: INSULIN ASPART PER UNIT CHARGE SC SCH (14:40)
[2024-05-13] MEDS: CYCLOBENZAPRINE HCL 10 MG TAB PO SCH (15:06)
[2024-05-13] MEDS: ACETAMINOPHEN 500 MG TAB PO PRN (15:10)
--- NOTE | 2024-05-13 15:17 | Pharmacy Report ---
Pharmacy Glycemic Short Note 2 - Date of Service May 13, 2024 - Glycemic Short BSG Results (Last 24 hours): 05/13/24 05/13/24 05/13/24 05:41 12:33 14:30 POC Glucose 89 90 88 OUTPATIENT ANTIDIABETIC REGIMEN: * Metformin and Lantus 18 units SC BID * A1c of 6.2 recorded on 04/26/24 ASSESSMENT: * Citlali Regan is a 73 yo F POD0 discectomy/fusion. Pt's PMH includes HTN, OA, hypothyroidism, ERIC and T2DM for which pharmacy has been consulted to manage pt's glycemics * Preop BSG was 89 and 90 postop. Pt got 1 dose of IV dexamethasone preop w/no subsequent orders. * Pt's BSG so far are very well controlled therefore will dose basal with BSG parameters and NovoLog stress factor of 2 based on pt's outpatient insulin dose PLAN FOR INPATIENT GLYCEMIC CONTROL: * Hold outpatient oral diabetes medications * Basal insulin * Lantus to be given per parameters: if BSG <180 give 10 units, if >180 give 20 units * Bolus insulin * NovoLog per scale ACHS or Q6hrs while NPO * Goal Range: Low 110 mg/dL - High 140 mg/dL * Correction Factor: 20 mg/dL/unit * Nutritional / Prandial insulin per carb ratio of 1 unit per 7 grams CHO consumed
[2024-05-13] MEDS ORDERED: NON-FORMULARY MEDICATION (Insulin Glargine [Lantus Solostar U-100 Insulin] 100 unit/mL (3 SQ SCH (21:00)
[2024-05-13] MEDS ORDERED: RALOXIFENE HCL 60 MG TAB PO SCH (21:00)
[2024-05-13] MEDS ORDERED: metFORMIN HCL 500 MG TAB PO SCH (21:00)
[2024-05-13] MEDS: DOCUSATE SODIUM/SENNA 50/8.6MG TAB PO SCH (21:59)
[2024-05-13] MEDS: ATORVASTATIN 40 MG TAB PO SCH (21:59)
[2024-05-13] MEDS: LANTUS PER UNIT CHARGE SC SCH (22:00)
[2024-05-13] MEDS: CHOLECALCIFEROL 125 MCG (5,000 UNITS) TAB PO SCH (22:00)
[2024-05-13] MEDS: lisinopril 10 MG TAB PO SCH (22:01)
[2024-05-13] MEDS: oxyCODONE/ACETAMINOPHEN 5mg/325mg TAB PO PRN (22:08)
[2024-05-14] MEDS: POLYETHYLENE (MIRALAX) 17 GM PACK PO SCH (05:42)
[2024-05-14] MEDS: LEVOTHYROXINE SODIUM 100 MCG TABLET PO SCH (05:42)
[2024-05-14 06:37] LABS: Basophils # (auto) 0.04 K/uL (0.00-0.20); Basophils % (auto) 0.6 %; Eosinophils # (auto) 0.22 K/uL (0.00-0.50); Eosinophils % (auto) 3.4 %; Hematocrit (blood only) 35.7 % (37.0-47.0); Hemoglobin 11.1 g/dl (12.0-16.0); Immature Granulocytes # (auto) 0.02 K/uL (0.01-0.20); Immature Granulocytes % (auto) 0.3 %; Lymphocytes # (auto) 1.28 K/uL (1.20-3.40); Lymphocytes % (auto) 19.7 %; Mean Corpuscular Hemoglobin 27.9 pg (25.0-34.0); Mean Corpuscular Hgb Conc 31.1 g/dL (32.0-36.0); Mean Corpuscular Volume 89.7 fL (80.0-100.0); Mean Platelet Volume 10.8 fL (9.4-12.4); Monocytes # (auto) 0.59 K/uL (0.11-0.59); Monocytes % (auto) 9.1 %; Neutrophils # (auto) 4.34 K/uL (1.40-6.50); Neutrophils % (auto) 66.9 %; Platelet Count 215 K/uL (130-400); RDW Coefficient of Variation 14.5 % (11.5-14.5); RDW Standard Deviation 47.8 fL (36.4-46.3); Red Blood Count 3.98 M/uL (4.20-5.40); White Blood Count 6.49 K/ul (4.8-10.8)
[2024-05-14 07:06] LABS: Potassium 4.4 mmol/L (3.5-5.1)
[2024-05-14 07:11] LABS: BUN Creatinine Ratio 11.7 (10-20); Creatinine Clr Calc Pharmacy 50.5 ml/min
--- NOTE | 2024-05-14 08:03 | Orthopedic Progress Note ---
Date of Service May 14, 2024 Assessment & Plan (1) S/P cervical spinal fusion: Plan s/p ACDF continue drain may remove collar for eating, drinking, hygiene mobilize with PT xrays toda Subjective S/P ACDF, dysphagia improving, voiding, on nasal cannula O2. No neuro complaints Review of Systems All systems reviewed & are unremarkable except as noted in HPI & below. Physical Exam drain functioning 5/5 C5-T1 myotomes SILT C5-T1 Results & Data Results & Data Laboratory Results . Diagnostic Findings . PG Care Time/CCT Total # of Minutes Spent Total Time Spent with Patient: Total time spent is greater than 50% in coordination of care (as documented) at patient's floor/unit and/or counseling patient: Coding Level of Care Code 20510 Post Operative Follow-Up Diagnoses S/P cervical spinal fusion Z98.1
--- NOTE | 2024-05-14 08:07 | Hospitalist Progress Note ---
Date of Service May 14, 2024 Assessment & Plan (1) Status post spinal surgery: Plan: VTE / Pain / Bowel management per primary ortho spine team POD#1 Labs reviewed, WBC wnl and has been afebrile Hgb stable 11.3--> 11.1. Renal function stable. Placed lisinopril on hold for this morning, dose feel a little fatigued but no lightheaded/dizziness Req supp O2 when sleeping, CPAP in room -- use per primary service ok and RN notified able to use. BP 104/64. PO fluids encouraged. Also encouraged use of incentive spirometry and up out of bed to chair to improve suspected atelectasis. Possible dc this afternoon however appears patient told not to come today due to football game and planning for dc tomorrow. Hospitalist service will follow along. Please reach out with any questions/concerns. (2) Diabetes mellitus: Plan: HbA1C 6.2 04/26/24, no need to repeat Pharmacy consulted for glycemic control during inpatient admission and do not anticipate change in diabetic regimen on discharge given good control (3) Hypothyroidism: Plan: TSH 1.878 [03/2023], several years of stability, no need to repeat at current time Continue levothyroxine 100 mcg PO daily (4) Hypercholesterolemia: Plan: Continue atorvastatin (5) Obstructive sleep apnea: Plan: CPAP HS, per primary service is ok to use. Patient has home machine in room (6) HTN (hypertension): Plan: Was continued on lisionpril 30mg mg PO BID, amlodipine 5mg daily Renal function stable but little fatigued and given BP 104/64 this morning will hold AM lisinopril and monitor to resume this evening vs in AM Plan Thank you for the consult, we will continue to follow along with you Admission and Anticipated Discharge Date Admission Date: May 13, 2024 Supervising Physician Co-Signing Physician Notes The patient was not seen by me. The chart was reviewed. Case discussed with TRISHA Luo. Agree with assessment and plan Subjective Evaluated this morning, feeling alright, some fatigued today and didn't sleep well. Has her home CPAP in room, reports ok to use per primary service. No CP/SOB reported, dropping to high 80s when sleeping. To encouraged continued incentive spirometry. No issues with diet. Discussed possible dc but she reports she told her not to come today due to the game. Dispo per primary service. Physical Exam 2 Physical Exam: General: 73yo sitting up in bed, NAD but fatigued reporting HEENT: head with cervical collar in place, dressing c/d/i, ANUJ output scant serosanguineous drainage, NO STRIDOR Resp; CTA, slightly diminished in the bases, no w/c/r, on room air but dipping to high 80s when sleeping and O2 placed back on. CV: RRR, no significant mrg GI: +BS, soft/NT MSK/Neuro: chronic b/l shoulder issues but sensation intact bilaterally, able to move extremities, sensation intact and pulses present Psych: AOx3, cooperative but fatigued appearing Results & Data Results & Data Vital Signs (Past 12 Hours) Vital Signs Temp Pulse Pulse Resp BP Pulse Ox O2 Del Method 05/14/24 07:26 Nasal Cannula 05/14/24 07:26 18 100 Nasal CPAP 05/14/24 07:24 69 18 99 Nasal Cannula 05/14/24 06:21 36.5 C 60 18 104/64 100 Nasal Cannula 05/14/24 04:21 36.4 C L 16 111/66 100 Nasal Cannula 05/14/24 03:48 68 18 99 Nasal Cannula 05/14/24 02:19 36.5 C 70 16 106/65 99 Nasal Cannula 05/13/24 23:40 71 18 98 Nasal Cannula 05/13/24 23:25 36.6 C 70 16 112/65 95 Room Air O2 Flow Rate 05/14/24 07:26 2 05/14/24 07:26 2 05/14/24 07:24 2 05/14/24 06:21 2 05/14/24 04:21 2 05/14/24 03:48 2 05/14/24 02:19 2 05/13/24 23:40 2 05/13/24 23:25 Laboratory Results 05/14/24 05:57 05/14/24 05:57 Diagnostic Findings Cervical Spine X-Ray 05/13/24 07:15 FL cervical 2-3V CLINICAL HISTORY: ACDF C4-C6 COMPARISON STUDY: Cervical spine radiographs 03/02/2024, MRI 03/24/2024 FLUOROSCOPY TIME: 62.6 seconds FLUOROSCOPY IMAGES: 3 EXPOSURE DOSE: 24.94 mGy FINDINGS: Anterior plate and screw fusion with discectomy noted at what is labeled the C4-C6 levels. Hardware appears intact as visualized. Overlying surgical sponge with endotracheal tube. Note that the images were submitted following completion of the surgery. IMPRESSION: Fluoroscopic assistance as above. ACT 112: Negative or not required by law. Electronically signed by: Adalberto Smiley M.D. 05/13/2024 12:51 PM PG Care Time/CCT Total # of Minutes Spent Total Time Spent with Patient: Total time spent is greater than 50% in coordination of care (as documented) at patient's floor/unit and/or counseling patient: Coding Level of Care Code 91492 SUB INP/OBS CARE 2/35MIN Diagnoses Status post spinal surgery Z98.890 Diabetes mellitus E11.9 Hypothyroidism E03.9 Hypercholesterolemia E78.00 Obstructive sleep apnea G47.33 HTN (hypertension) I10
[2024-05-14] MEDS: amLODIPine BESYLATE 5 MG TAB PO SCH (08:19)
[2024-05-14] MEDS: MAGNESIUM SULFATE / D5W 1 GM/100 ML BAG IV SCH (11:13)
--- NOTE | 2024-05-14 11:19 | XRay Report ---
XR cervical spine 2 or 3V HISTORY: 73 years-old Female post-op spine surgery status post cervical spine surgery COMPARISON: MRI 03/24/2024 TECHNIQUE: 2 views of the cervical spine FINDINGS: Shoulder arthroplasty. Anterior plate and screw fusion with discectomy at C4-C6. The hardware appears intact. No acute fracture identified. Demineralized appearance of the bones. Anterior surgical drain age catheter. No unexpected opaque foreign bodies. IMPRESSION: Anterior plate and screw fusion with discectomy at C4-C6 with expected postoperative find ings. ACT 112: Negative or not required by law. The above report was generated using voice recognition software. It may contain grammatical, syntax o r spelling errors. Electronically signed by: Adalberto Smiley M.D. 05/14/2024 11:17 AM
--- NOTE | 2024-05-14 11:20 | XRay Report ---
XR chest 1V portable HISTORY: 73 years-old Female o2 req, ?atelectasis acute hypoxia COMPARISON: 04/26/2024 TECHNIQUE: PA view of the chest FINDINGS: Cardiac silhouette is enlarged. Cervical spinal fusion hardware. Fixation hardware of the right proxi mal humerus with left shoulder arthroplasty. Cholecystectomy. Atherosclerosis of the aorta. No pneumo thorax. Trace pleural effusions with mild bibasilar and right midlung atelectasis. IMPRESSION: 1. Cardiomegaly without overt pulmonary edema. 2. Trace pleural effusions with mild bibasilar and right midlung atelectasis. ACT 112: Negative or not required by law. The above report was generated using voice recognition software. It may contain grammatical, syntax o r spelling errors. Electronically signed by: Adalberto Smiley M.D. 05/14/2024 11:19 AM
[2024-05-14] MEDS: RALOXIFENE HCL 60 MG TAB PO SCH (21:19)
[2024-05-14] MEDS: LANTUS PER UNIT CHARGE SC SCH (21:20)
[2024-05-15 07:28] VITALS: RESP 16
[2024-05-15 07:28] LABS: Creatinine Clr Calc Pharmacy 52.1 ml/min; Magnesium 1.9 mg/dl (1.7-2.4); Potassium 4.4 mmol/L (3.5-5.1)
--- NOTE | 2024-05-15 08:01 | Hospitalist Progress Note ---
Date of Service May 15, 2024 Assessment & Plan (1) Status post spinal surgery: Plan: VTE / Pain / Bowel management per primary ortho spine team POD#2 Labs reviewed, WBC wnl. Renal function/electrolytes stable. Hgb 11.3--> 11.1 and acceptable w/ blood loss from surgery/ANUJ drain Tolerating diet without issues, pain control stable Placed lisinopril on hold AM 05/14 for BP to ensure no issues and borderline BP but was improved in evening and resumed PM 05/14 Mag 1.6, IV replacement ordered and RN provided incentive spirometer/encouraged out of bed up to chair to improve atelectasis and titrated to room air by afternoon. Possible dc this afternoon however appears patient told not to come today due to football game and planning for dc tomorrow. Hospitalist service will follow along. Please reach out with any questions/concerns. * Ca borderline at 10 and checked Vit D as on replacement at baseline. VIt D level 99.8 and would recommend patient stop taking this supplementation at discharge to prevent hypercalcemia/issues from such. (2) Diabetes mellitus: Plan: HbA1C 6.2 04/26/24, no need to repeat Pharmacy consulted for glycemic control during inpatient admission and do not anticipate change in diabetic regimen on discharge given good control (3) Hypothyroidism: Plan: TSH 1.878 [03/2023], several years of stability, no need to repeat at current time Continue levothyroxine 100 mcg PO daily (4) Hypercholesterolemia: Plan: Continue atorvastatin (5) Obstructive sleep apnea: Plan: CPAP HS, per primary service is ok to use. Patient has home machine in room (6) HTN (hypertension): Plan: Was continued on lisionpril 30mg mg PO BID, amlodipine 5mg daily Renal function stable but little fatigued and given BP 104/64 this morning will hold AM lisinopril and monitor to resume this evening vs in AM Plan Thank you for the consult, we will continue to follow along with you Admission and Anticipated Discharge Date Admission Date: May 13, 2024 Results & Data Results & Data Vital Signs (Past 12 Hours) Vital Signs Temp Pulse Pulse Resp BP Pulse Ox O2 Del Method 05/15/24 07:26 37.1 C 76 16 134/68 95 Room Air 05/15/24 07:08 84 18 95 Room Air 05/15/24 07:08 Nasal Cannula 05/15/24 02:50 36.6 C 70 16 131/81 98 Room Air 05/15/24 02:47 70 18 99 Nasal Cannula 05/14/24 22:47 67 18 98 Nasal Cannula 05/14/24 22:45 37.1 C 73 16 105/65 98 Nasal Cannula O2 Flow Rate 05/15/24 07:26 05/15/24 07:08 05/15/24 07:08 2 05/15/24 02:50 05/15/24 02:47 2 05/14/24 22:47 2 05/14/24 22:45 2 PG Care Time/CCT Total # of Minutes Spent Total Time Spent with Patient: Total time spent is greater than 50% in coordination of care (as documented) at patient's floor/unit and/or counseling patient: Coding Diagnoses Status post spinal surgery Z98.890 Diabetes mellitus E11.9 Hypothyroidism E03.9 Hypercholesterolemia E78.00 Obstructive sleep apnea G47.33 HTN (hypertension) I10
--- NOTE | 2024-05-15 09:16 | Communication Note ---
Date of Service: May 15, 2024 See this morning, up in chair w/ colar in place. Doing well, pain controlled. On room air. No SOB. Tolerating diet. Had Placed lisinopril on hold AM 11 for BP to ensure no issues and borderline BP but was improved in evening and resumed PM 11 and stable this morning BP 134/68 and asymptomatic. Mag was 1.6, IV replacement ordered and normalized on repeat. RN provided IS and encouraged continued use for atelectasis. 95% on RA. DC planned for this afternoon once done at [facility] at 11am. Dr Mckeon not yet in to see patient, but to notify hospitalist service if any questions/concerns or need for evaluation. Of note, discussed Ca borderline at 10 and I checked Vit D as on replacement at baseline. VIt D level 99.8 and would recommend patient stop taking this supplementation at discharge to prevent hypercalcemia/issues from such. Possible dc this afternoon however appears patient told not to come today due to football game and planning for dc tomorrow. Hospitalist service will follow along. Please reach out with any questions/concerns.
--- NOTE | 2024-05-15 11:04 | Orthopedic Progress Note ---
Date of Service May 15, 2024 Assessment & Plan (1) S/P cervical spinal fusion: activity as tolerated diet as tolerated Pain control likely home this afternoon, states she feels safe to navigate house with her , if she needs make accommodations to stay downstairs Subjective No airway issues overnight, pain controlled, tolerating PO, drain output minimal. Worked with PT. Review of Systems All systems reviewed & are unremarkable except as noted in HPI & below. Physical Exam neuro exam stable Results & Data Results & Data Laboratory Results . Diagnostic Findings . PG Care Time/CCT Total # of Minutes Spent Total Time Spent with Patient: Total time spent is greater than 50% in coordination of care (as documented) at patient's floor/unit and/or counseling patient: Coding Level of Care Code 79182 Post Operative Follow-Up Diagnoses S/P cervical spinal fusion Z98.1
--- NOTE | 2024-05-15 11:19 | Discharge Summary ---
Date of Service May 15, 2024 Admission HPI (Per Admitting) Patient admitted status post anterior cervical discectomy and fusion, preoperatively she was found to be myelopathic with balance deficits, urinary urgency and decreased fine motor skills in the upper extremities. Principal Diagnosis Same as "Discharge Diagnosis" noted below under Discharge Instructions. Discharge Exam 5 out of 5 strength bilateral C5-T1 myotomes Sensation intact to light touch C5-T1 dermatomes Drain removed, incision clean dry and intact Discharge Data Consultations 05/13/24 13:51 Consult Hospitalist Routine Procedures Performed Operation Date: 05/13/24 07:15 Actual Procedures p C4-C5, C5-C6 Anterior Cervical Discectomy Fusion, Spinal Cord Monitoring(Not Applicable) - Hang Mckeon MD Ordered Studies 05/13/24 07:15 FL cervical 2-3V Routine Hospital Course (1) Cervical myelopathy: (2) Herniated nucleus pulposus, C5-6: (3) Herniated nucleus pulposus, C4-5: (4) S/P cervical spinal fusion: Plan Patient was admitted postoperatively for pain control and mobilization with physical therapy. They worked with physical therapy and met all goals. Pain was controlled with IV pain medication and transitioned to oral medications. Normal return of bowel and bladder function. They worked with physical therapy, vital signs were acceptable, no need for transfusion, deemed safe for discharge. PG Care Time/CCT Total # of Minutes Spent Total Time Spent with Patient: Total time spent is greater than 50% in coordination of care (as documented) at patient's floor/unit and/or counseling patient: Discharge Plan Discharge Items Patient Disposition: Home - Self-Care Reason For Visit: S/P ACDF Discharge Diagnosis: Follow instructions on post op instruction sheet. Condition on Discharge: Good Activity: As commented below Activity Comment: Follow activity restrictions on postop instruction sheet. Lifting: No more than 5 pounds Bathing Comment: May shower on postop day 3 as long as incision dry Non-emergency contact: Surgeon Call non-emergency contact if: your symptoms worsen, your pain is worsening, your temperature is above 101, your wound has increased redness, your wound has increased drainage and your wound pain has increased Follow-up/Referrals: Kade Houser DO [Primary Care Provider] - 05/23/24 4:00 pm Diet: Other - See Diet Comment Diet Comment: Advance diet as tolerated to normal texture Addtl Attending Provider Instructions: Follow postoperative instruction sheet given in clinic. Addtl Upholstery Technician Provider Instructions: Your calcium level is not elevated but was borderline on the high side. Review of home medications notes you are on vitamin D supplementation and your Vitamin D level was checked and was 99.8. Normal values are 30-100 and we would like you to STOP this supplementation at discharge to prevent overcorrection as further elevation of your calcium level is possible with continued supplementation can contribute to symptoms as this is a fat soluble vitamin. Symptoms of paresthesias, constipation, confusion, etc are possible however again your level was NOT elevated but we want to prevent this from happening in the future. Please discuss with primary care in follow up. Pending Studies at Discharge: No Studies:: Postoperative x-rays reveal good position of anterior interbody spacers at C4-5 and C5-6. Stand-Alone Forms: My [employer], Smoking Cessation Medications and DC Order Prescriptions: New oxycodone-acetaminophen [Endocet] 5-325 mg tablet 1 tab PO Q6H PRN (Reason: pain) 14 Days Qty: 56 0RF cyclobenzaprine 10 mg tablet 10 mg PO Q8H PRN (Reason: muscle spasm) 30 Days Qty: 90 0RF Continued (DME) OneTouch Ultra Test Strip See Rx Instructions .ROUTE .COMPLEX Qty: 300 1RF Dose Instruction: USE DIRECTED THREE TIMES A DAY Rx Instructions: USE DIRECTED THREE TIMES A DAY insulin glargine [Lantus Solostar U-100 Insulin] 100 unit/mL (3 mL) insulin pen 18 unit SQ BID Qty: 45 3RF (DME) pen needle, diabetic 31 gauge x 1/4" needle See Rx Instructions .ROUTE .MEDSUPPLY Qty: 300 2RF Rx Instructions: As directed amlodipine 5 mg tablet 5 mg PO QAM Qty: 90 3RF levothyroxine 100 mcg tablet 100 mcg PO QAM Qty: 90 3RF metformin 1,000 mg tablet 1,000 mg PO BID Qty: 180 3RF raloxifene 60 mg tablet 60 mg PO PM Qty: 90 3RF lisinopril 30 mg tablet 30 mg PO BID Qty: 180 1RF Rx Instructions: DO NOT FILL UNTIL PATIENT REQUESTS IT acetaminophen [Tylenol] 325 mg Capsule 325 mg PO UD PRN (Reason: Pain) atorvastatin 40 mg tablet 40 mg PO HS Rx Instructions: TAKE ONE TABLET BY MOUTH AT BEDTIME clotrimazole-betamethasone 1-0.05 % cream 1 applic TOP UD PRN (Reason: rash) furosemide [Lasix] 20 mg tablet 20 mg PO UD PRN (Reason: Fluid Retention) Discontinued cholecalciferol (vitamin D3) [Vitamin D3] 5,000 unit tablet 5,000 unit PO PM Qty: 90 1RF Rx Instructions: DO NOT FILL UNTIL PATIENT REQUESTS IT naproxen sodium [Aleve] 220 mg Capsule 0 mg PO UD PRN (Reason: Pain) Patient Comments: aleve for back and muscle Discharge Orders: Discharge Order (Routine); Ordered 05/15/24 Ordered By: Hang Mckeon Admission Data Admit Date/Time: 05/13/24 12:32 Attending Provider: Hang Mckeon Admit Provider: Hang Mckeon Primary Care Provider: Kade Houser Other Providers: [place]; Fadia Garcia; Marquis Pérez; Sushil Perez; Wu Servin; Santos Marin; Susy Hernandez; America Paris; Rosalva Suárez; Lizbeth Motley; Joseph Mendez; Peggy Marie; Ridge Cronin; Marquis Cross; Dao Car; Remy Sparks; Sofi Yee; Mariama Watkins E; Mariama Hodges E; Neeta Peres E; Heather Esqueda N; Viji Kwon; Erwin Vazquez; Meli Lucas; Stas Bernal; Steve Hugo; Gio Hui; Mayelin Silva; Breanne Vernon; Mook Suarez; Letty Osorio; Sushil Fernandez; Wu Gomez; Linsey Richmond; Luann Glover; Micheline Long; Nithin Matamoros; Stone Merritt; Jose Hahn; Alcides Hedrick; Didi Gomez; Bronson Beckwith
[2024-05-15 14:38] VITALS: BP 156/74; PULSE 88; TEMP 98.6; O2SAT 93
== END 2024-05-15 15:29 | disposition home or self-care (01) ==
LOC: ASU 05:08 → 3E 05:08